=== PATIENT | female | born 1955 | race Caucasian/White ===

== ENCOUNTER 2020-07-16 14:45 | Emergency (ER) | payer MEDICARE, BC, SELFPAY ==
[2020-07-16 14:45] VITALS: BP 155/99; PULSE 101; RESP 18; TEMP 35.7; O2SAT 95; BMI 28.1
--- NOTE | 2020-07-16 15:04 | CT_ITS ---
STUDY: CT BRAIN WITHOUT CONTRAST REASON FOR EXAM: Female, 64 years old. SEVERE HEADACHE SINCE MONDAY, WEAKNESS, BACK PAIN RADIATION DOSAGE (If Supplied By Facility): CTDIvol = ( 44.99 ) mGy, DLP = ( 812.98 ) mGycm TECHNIQUE: Transaxial CT imaging of the brain was performed without administration of intravenous contrast material. Individualized dose optimization techniques were used for this CT. COMPARISON: No relevant priors. FINDINGS: Normal soft tissue structures. Normal calvarium. Normal size ventricles and extra-axial spaces for the patient''s age. Normal white matter tracts of the cerebral hemispheres. Normal basal ganglia and thalami. Normal brainstem. Normal cerebellum. There is no intracranial hemorrhage. There are no findings of an acute ischemic infarction. Normal visualized paranasal sinuses. CT/Brain/Head without Contrast IMPRESSION: Normal unenhanced CT scan of the brain. Electronically Signed: Huey Damon MD at 16:30 EST Tel , Service support ,
--- NOTE | 2020-07-16 15:43 | ED.VIS.GEN ---
History of Present Illness Chief Complaint: Headache Informant: Patient Narrative: 64-year-old female presents with concern for headache. States it is been present for the past 3 days. States it is intermittent. Relieved with Aleve. States it is bandlike in nature. Patient is also had malaise. Denies any cough or fever. Denies any head injury. Patient did have a head injury 6 years ago but is not diagnosed with traumatic brain injury. Patient is not on anticoagulation. Denies any neck pain, vision change, chest pain, shortness of breath, urinary symptoms. Past Medical History - Allergies and Home Meds Allergies/Adverse Reactions: Allergies No Known Allergies Allergy (Verified 07/16/20 14:48) Prior records reviewed: Yes Past Medical History: None Surgical History: no surgical history Lives: Spouse/ Significant Other Smoking Status: Never smoker Alcohol: None Drugs: None Review of Systems General: Reports: Malaise. Denies: Chills, Fever, Sweats Eyes: Denies: Visual changes - bilaterally, Diplopia ENT: Denies: Rhinorrhea, Sore throat Cardiovascular: Denies: Chest pain, Palpitations Respiratory: Denies: Dyspnea, Cough, Dyspnea on exertion Gastrointestinal: Denies: Abdominal pain, Nausea, Vomiting, Diarrhea, Melena, Hematochezia Genitourinary: Denies: Dysuria, Hematuria, Frequency Musculoskeletal: Denies: Back pain, Extremity Pain Skin: Denies: Rash, Wounds Neurological: Reports: Headache. Denies: Weakness, Numbness Physical Exam Vital Signs/Narrative: Vital Signs Temp Pulse Resp BP Pulse Ox 07/16/20 14:45 96.3 F L 101 H 18 155/99 H 95 Inital Vital Signs reviewed: Yes General: Well nourished, Well developed, No Acute Distress Head: Normocephalic, Atraumatic Eyes: Perrl, EOMI ENT: Moist mucous membranes, No rhinorrhea Neck: Supple, Nontender Cardiovascular: Regular rate, Regular rhythm, No murmurs Respiratory: No distress, CTA bilaterally, Chest nontender Abdomen: Soft, Nontender, Nondistended, Normal bowel sounds Back: Nontender, Normal Inspection Extremities: Nontender, No edema Skin: Normal color, No rash Neurological: Alert, Oriented x3, Cranial nerves II-XII grossly intact, Normal Strength, Normal Sensation Psychological: Normal affect, Normal Mood Diagnostic/Tx/Re-eval Clinical Impression(s) from Imaging Studies Brain CT 07/16/20 15:04 IMPRESSION: Normal unenhanced CT scan of the brain. Electronically Signed: Huey Damon MD at 16:30 EST Tel , Service support , - Medical Decision Making Patient appears well and nontoxic. No signs of meningismus. No focal neurologic deficit. CT brain negative. Patient given fluid bolus, Toradol, Zofran. Patient is coronavirus positive. Advised on self-isolation and supportive care. Advised to return for worsening shortness of breath. Patient agreeable and discharged home in stable condition. Impression: 1. COVID-19 2. Headache ED Disposition - Plan for ED Patient: Disposition: Home or Assisted Living Instructions: Coronavirus Disease 2019 (COVID-19): Overview Referrals: Blessing Osborne DO [Primary Care Provider] - 2 Days
[2020-07-16 16:56] VITALS: BP 134/84; PULSE 97; RESP 16; O2SAT 96
[2020-07-16] MEDS: Ondansetron 4 MG/2 ML Vial IV (16:57)
[2020-07-16] MEDS: 0.9% Normal Saline 1,000 ML 999 ML IV (16:57)
[2020-07-16] MEDS: Ketorolac 15 MG/ML Vial IV (16:58)
[2020-07-16 18:14] VITALS: BP 134/72
== END 2020-07-16 18:14 | disposition home or self-care (01) ==
PROVIDERS: Emergency Provider Emergency Medicine; PCP Internal Medicine
DX: R51.9 Headache, unspecified (principal); U07.1 COVID-19
CPT/HCPCS: 70450; 87426; 96361; 96374; 96375; 99284; J7030; J2405

== ENCOUNTER 2023-09-27 09:11 | Outpatient (CLI) | payer MEDICARE, BC, SELFPAY ==
--- NOTE | 2023-09-27 09:29 | RAD_ITS ---
STUDY: X-RAY CHEST REASON FOR EXAM: Female, 67 years old. PRE OP TECHNIQUE: PA and lateral views of the chest. COMPARISON: None. FINDINGS: The lungs are clear and expanded. There is no demonstrated pleural abnormality. Normal size heart. Normal mediastinum and neyda. Normal visualized pulmonary arteries. Normal visualized aortic arch and descending thoracic aorta. Normal visualized thoracic spine. Normal visualized ribs, clavicles, and shoulders. There is no demonstrated abnormality of the visualized soft tissue structures of the upper abdomen. RAD/Chest PA and Lateral IMPRESSION: Normal x-ray examination of the chest. Electronically Signed: Real Simon MD at 23:31 EDT ,
[2023-09-27 12:52] LABS: Hematocrit 44.4 % (37-47); Hemoglobin 14.4 g/dL (12.0-15.0)
[2023-09-27 13:17] LABS: BUN 16 mg/dL (7-18); Glucose 103 mg/dL (74-106)
== END 2023-09-27 23:59 | disposition home or self-care (01) ==
PROVIDERS: PCP Internal Medicine; Referring Provider Podiatrist; Visit Provider Podiatrist
DX: Z01.818 Encounter for other preprocedural examination (principal); M20.20 Hallux rigidus, unspecified foot
CPT/HCPCS: 36415; 71046; 82947; 84520; 85014; 85018